=== PATIENT | female | born 1945 | race Caucasian/White ===

== ENCOUNTER 2024-06-21 11:38 | Emergency (ER) | payer OTHER, SELFPAY ==
[2024-06-21 11:49] VITALS: BP 140/78
[2024-06-21 12:15] LABS: % Immature Granulocytes 0.5 % (0-0.5); % Lymphocytes 29.2 % (20.5-51.1); % Monocytes 11.8 % (1.7-9.3); % Neutrophils 53.5 % (42.2-75.2); Absolute Basophils 0.1 10^3/uL (0-0.2); Absolute Eosinophils 0.4 10^3/uL (0-0.7); Absolute Immature Granulocytes 0.1 10^3/uL (0-0.05); Absolute Lymphocytes 2.8 10^3/uL (1.2-3.4); Absolute Monocytes 1.1 10^3/uL (0.1-0.6); Absolute Neutrophils 5.1 10^3/uL (1.4-6.5); Hemoglobin 14.6 g/dL (12.0-16.0); Mean Corp Hgb Conc. 31.7 g/dL (33.0-37.0); Mean Corpuscular Hgb 30.3 pg (27.0-31.0); Mean Corpuscular Volume 95.4 fL (81.0-99.0); Mean Platelet Volume 9.7 fL (7.4-10.4); Nucleated Red Blood Cells % 0 %; Platelet Count 218 10^3/uL (130-400); Red Blood Cell Count 4.82 10^6/uL (4.20-5.40); Red Cell Dist. Width 12.1 % (11.5-14.5); White Blood Cell Count 9.6 10^3/uL (4.8-10.8)
[2024-06-21 12:26] LABS: INR 1.26; PT 16.3 Sec (11.4-14.6)
[2024-06-21 12:31] LABS: ALT (SGPT) 25 U/L (0-35); AST (SGOT) 32 U/L (14-36); Albumin 4.2 g/dl (3.5-5.0); Alkaline Phosphatase 102 U/L (38-126); Blood Urea Nitrogen 20 mg/dl (7-17); Calcium 9.6 mg/dl (8.4-10.2); Carbon Dioxide 25 mmol/L (22-30); Chloride 105 mmol/L (98-107); Glucose 94 mg/dl (70-99); Potassium 4.4 mmol/L (3.5-5.1); Sodium 142 mmol/L (135-145); Total Bilirubin 0.5 mg/dl (0.2-1.3); eGFR > 60.00
[2024-06-21 12:43] LABS: Troponin I < 0.012 ng/ml
[2024-06-21 13:56] VITALS: BMI 32.4
--- NOTE | 2024-06-21 14:10 | ED.GENMED ---
History of Present Illness
General
Chief Complaint: Heart Rate Problem
Source: patient
Exam Limitations: none
Time Seen by Provider: 06/21/24 12:56
Nursing documentation reviewed up to this point in time: agreed with
History of Present Illness
History of Present Illness:
78-year-old female presenting to the emergency department today with concerns of palpitations over the past 4 days. Does of a history of paroxysmal A-fib and ablation 8 years ago otherwise was feeling well up until about a month ago was placed on
diltiazem and Eliquis and seem to go out of A-fib at the time symptoms recurred a few days ago. Denies specific chest pain or any severe symptoms. Tends to feel some increased lightheadedness and fatigue with increased exertion. Denies any chest
pain.
Past History
Past History
ED Past Medical History: Arrthythmia (Atrial fibrillation)
Social History
Tobacco: Former smoker
Personal:
Review of Systems
Review of Systems
Allergies reviewed?: Yes
All Other Systems: ROS reviewed and negative except as documented in HPI and ROS
Phy Exam
Physical Exam
Physical Exam:
GENERAL: Alert , in no apparent distress
EYE: pupils equal and reactive
NECK: Supple, no significant adenopathy.
ENT: o/p clr, mmm.
CARDIAC: Irregularly irregular normal rate
LUNGS: Clear breath sounds bilaterally, no acute respiratory distress, no wheezes/rales/rhonchi
ABDOMEN: Soft, without focal tenderness, no r/g, no cvat
NEUROLOGICAL: Alert and oriented, no focal neuro deficits
SKIN: Warm and dry, skin intact.
MUSCULOSKELETAL: No edema, well perfused.
PSYCH: Normal and appropriate interaction.
Course
Orders/Labs/Results
Orders:
Orders
06/21/24 11:39
Electrocardiogram (*1) Urgent
Reason for Study: Chest Pain
EKG- Treatment ONCE
06/21/24 12:06
Complete Blood Count/With Diff Urgent
Comprehensive Metabolic Panel Urgent
PT/INR [Prothrombin Time] Urgent
Troponin I Urgent
06/21/24 14:09
Diltiazem Extended Release [Cardizem Cd] 180 mg PO NOW STA
Abnormal Lab Results
06/21/24
12:06
MCHC 31.7 L g/dL
(33.0-37.0)
Abs Immat Gran (auto) 0.1 H 10^3/uL
(0-0.05)
Absolute Monos (auto) 1.1 H 10^3/uL
(0.1-0.6)
Monocytes % 11.8 H %
(1.7-9.3)
PT 16.3 H Sec
(11.4-14.6)
BUN 20 H mg/dl
(7-17)
06/21/24 12:06
06/21/24 12:06
Vital Signs
Initial and Last Documented VS:
Initial Vital Signs
Temp Pulse Resp BP Pulse Ox
98.5 F 94 16 140/78 98
06/21/24 11:49 06/21/24 11:49 06/21/24 11:49 06/21/24 11:49 06/21/24 11:49
Last Documented Vital Signs
Temp Pulse Resp BP Pulse Ox
98.5 F 94 19 140/78 97
06/21/24 11:49 06/21/24 13:45 06/21/24 13:45 06/21/24 11:49 06/21/24 13:45
MDM/Problems Addressed
MDM/Problems Addressed:
78-year-old female presenting to the emergency department today with concerns of A-fib over the past few days. Has had this in the past had previous ablation 8 years ago. Here heart rate fluctuating between 70 and 110 normal blood pressure labs
unremarkable troponin negative no signs of ischemia. Patient generally well-appearing. Case discussed with cardiology that would like her to be increased and diltiazem and she can follow-up as an outpatient. The option of cardioversion was
discussed with the patient, she declined cardioversion at this time. Patient is otherwise anticoagulated with Eliquis and stable for outpatient management.
*Critical Care Note
Total Time (30-74mins, 75-104mins- exclusive of procedures): Not Applicable
ED Attending Note
-
Portions of this chart may have been created with voice recognition software.� Occasional wrong word or��sound alike� substitutions may have occurred due to the inherent limitations of voice recognition software.
Discharge Plan
Departure
Patient Disposition: Home (Routine Discharge)
Date of Disposition: 06/21/24
Time of Disposition: 14:20
Patient with high blood pressure during this ER visit?: No
Condition: Good
Covid-19: Not Applicable
Discharge Problem:
Atrial fibrillation
Instructions: Chest Pain CBC Follow Up
Prescriptions:
New
diltiazem HCl 180 mg capsule,extended release 24 hr
180 mg PO BID 14 Days Qty: 28 0RF
No Action
multivitamin [Multi-Day] 1 EACH tablet
1 ea PO DAILY
[id number] [Airborne (lysine HCl)] 1 EACH tablet, effervescent
2,500 mcg PO DAILY
ascorbic acid-vitamin E-biotin [Hair, Skin, Nails with Biotin] 1 EACH tablet,chewable
1 dose PO DAILY
Calcium
1,000 mg PO DAILY
sennosides [senna] 1 TABLET tablet
2 tab PO BID Qty: 0 0RF
acetaminophen 325 MG tablet
650 mg PO Q4HPRN PRN (Reason: for mild pain or fever >100.4F) Qty: 0 0RF
hydrocodone-acetaminophen 1 TABLET tablet
1 - 2 tab PO Q4HPRN PRN (Reason: pain) Qty: 90 0RF
docusate sodium 100 MG capsule
100 mg PO BID Qty: 0 0RF
warfarin [Jantoven] 2.5 MG tablet
2.5 mg PO DAILY Qty: 40 0RF
Rx Instructions:
take 2 tab 08/12 and 08/[address] Holguin
ibuprofen [Advil] 200 MG tablet
600 mg PO Q8HPRN PRN (Reason: pain) Qty: 0 0RF
Referrals:
Radhames Jacome MD [Family Provider] -
Activity Restrictions/Additional Instructions:
You came to the emergency department today with concerns of atrial fibrillation. Please follow closely with cardiology. Please take 180 mg of diltiazem twice daily as well as your Eliquis and follow-up closely with cardiology. Return to the
emergency department any worsening, new or concerning symptoms.
Interventions
Interventions:
*Risk Screen - Suicide Last Done: 06/21/24 11:49
*General Assessment Last Done: 06/21/24 11:49
*Neglect/Abuse Screening Last Done: 06/21/24 11:49
ED- Fall Risk Assessment Last Done: 06/21/24 13:57
*ED COVID-19 Vaccine History Last Done: 06/21/24 11:49
ED- Pulmonary Assessment Last Done: 06/21/24 13:57
Discharge Date and Time
Print Language: NEPALI
[2024-06-21] MEDS: CARDIZEM CD 180 MG PO (14:31)
[2024-06-21 15:05] VITALS: BP 141/80
== END 2024-06-21 15:07 | disposition home or self-care (01) ==
LOC: EMR 11:38
PROVIDERS: Emergency Medicine; EMERGENCY PHYSICIAN Emergency Medicine; FAMILY PHYSICIAN Family Medicine
DX: I48.91 Unspecified atrial fibrillation (principal); Z87.891 Personal history of nicotine dependence; Z79.01 Long term (current) use of anticoagulants; Z79.899 Other long term (current) drug therapy
CPT/HCPCS: 99284; 80053; 84484; 85025; 85610; 93005

== ENCOUNTER 2024-07-14 05:57 | Day surgery (SDC) | payer OTHER, SELFPAY ==
[2024-07-14] VITALS (14 sets, daily range): BP systolic 124–155; BP diastolic 62–82; BMI 34.7
[2024-07-14 08:47] LABS: ACT-LR - POC 322 Seconds (116-155)
[2024-07-14 09:10] LABS: ACT-LR - POC 285 Seconds (116-155)
--- NOTE | 2024-07-14 10:14 | ITS.CL.ABL ---
Software Performance Engineer - Ablation
Ablation
Procedure Report:
ELECTROPHYSIOLOGIC STUDY AND POSSIBLE ABLATION
DATE: 07/14/24
Primary Care Provider: Gladis Woodard NP
Primary Blacksmith Assistant: Dr Jad Mahajan
INDICATION:
Symptomatic Paroxysmal Atrial Fibrillation and Left atrial flutter.
HISTORY: See H and P.
Symptomatic AF, poorly controlled with attempted medical therapy.
She underwent PVI in 2016 and did well for approximately 8 years then developed recurrent atrial fibrillation and atrial tachycardia/atrial flutter which has been difficult to rate control with diltiazem, symptomatic. She has been referred for
consideration for repeat mapping and ablation.
HAS-BLED: 1
Age
CHADSVASc: 4
HTN
Age
F Gender
PRESENTING RHYTHM: SR
HISTORY: See H and P.
Symptomatic AF, poorly controlled with attempted medical therapy.
ANTICOAGULATION: Apixaban
'TIME-OUT': called and confirmed.
SEDATION/ANESTHESIA: provided via the anesthesia department using general anesthesia.
PROCEDURE:
Ultrasound Guidance performed by md was utilized for femoral venous Vascular Access b/l.
A decapolar CS catheter was placed within the CS for mapping and pacing.
The intracardiac ultrasound catheter was positioned in the RA for continuous intracardiac ultrasound imaging.
Heparin bolus and infusion to target ACT at 300 -350 seconds was administered. Transseptal puncture was performed. This entailed advancing a sheath with dilator into the superior vena cava and withdrawing both (monitoring intracardiac ultrasound,
fluoroscopy and tip pressure) with the tip oriented toward the atrial septum. The fossa ovalis was engaged (indicated by sudden displacement of the sheath tip as well as tenting of the fossa seen on intracardiac ultrasound).
The [employer] transseptal system was used. Left atrial catheter position was confirmed by echocardiographic imaging and fluoroscopy followed by RF delivery using the [employer] system resulting in successful LA access with pressure monitoring
demonstrating LA pressure waveforms (LA mean pressure 8 mm Hg). The sheath was advanced over the dilator and positioned in the left atrium.
The Galeana Grid multipolar mapping catheter was initially positioned through the transseptal sheath for high density mapping.
Geometry and voltage mapping was performed using the Galeana multipolar grid catheter. Ensite-X was utilized for three-dimensional electroanatomical mapping.
A 3-D map was created using Ensite-X in Voxel mode. A 3-D reconstructed CT image was compared to the 3-D Navex map to assist in anatomic evaluation, mapping and ablation.
There is electrical isolation of the right superior and right inferior pulmonary vein at the ostia and at the atrial level. There is an area of reconnection at the kiel between the left superior and left inferior pulmonary veins, otherwise
isolated.
Programmed electrical stimulation which included burst atrial pacing as well as atrial decremental extrastimuli failed to induce any sustained arrhythmias.
The [employer]ees PFA catheter and system was used for cardiac ablation. Catheter positioning was guided and confirmed using both I.C.E. and fluoroscopy.
Initial PFA application included isolation at the posterior kiel between the left superior and left inferior pulmonary veins.
Additional ablation lesion set was applied to the posterior wall of the left atrium given that prior EKG from June 21, 2024 suggested left atrial flutter despite inability to induce the tachycardia given that there is EKG evidence of the
tachycardia..
Programmed electrostimulation failed to induce any sustained arrhythmias.
I.C.E. :
Pre-Ablation Post-Ablation
LVEF: 55 % 55 %
WMA: none none
Pericardial effusion: none none
COMPLICATIONS:
none
SUMMARY:
- Mapping and ablation to isolate the PVs
- Additional AF ablation set after PVI.
- 3-D Electroanatomical Mapping
- Intracardiac Ultrasound
Post ablation, I discussed today's findings and results with the patient's .
RECOMMENDATIONS:
- Observe in monitored bed.
- Maintain oral anticoagulation.
- Reduce diltiazem and there can be consideration for discontinuation of diltiazem if blood pressure allows or if an alternative antihypertensive drug is chosen. (She is concerned diltiazem is adding to her fatigue)
- Office visit with Dr Mahajan in 3-4 months.
- Continue cardiovascular care with Dr Mahajan
Copy to:
Gladis Woodard NP
Dr Jad Mahajan
[2024-07-14] MEDS: ANESTHETIC LOZENGE 1 LOZENGE PO (10:23)
--- NOTE | 2024-07-14 14:46 | W.PN.UPDATE ---
Update Note
Progress Note Update
Pt seen post PFA. Right groin site with mild bleed after suture removal, manual compression held and now without bleeding/ht. OOB ambulating to bathroom with steady gait. Post EKG NSR 80s, no acute changes. Resume eliquis tonight at usual time.
Decrease diltiazem to 180mg daily. She is concerned with side effects and will keep a BP log and bring to followup appointment with Dr. Mahajan as scheduled. Home later today if groin site/tele remain stable.
== END 2024-07-14 14:49 | disposition home or self-care (01) ==
LOC: CATH 05:57
PROVIDERS: ATTENDING PHYSICIAN Internal Medicine Cardiovascular Disease; FAMILY PHYSICIAN Family Medicine; OTHER PHYSICIAN Internal Medicine Cardiovascular Disease
DX: I48.0 Paroxysmal atrial fibrillation (principal); I48.92 Unspecified atrial flutter; I47.19 Other supraventricular tachycardia; I10 Essential (primary) hypertension; Z88.1 Allergy status to other antibiotic agents; Z79.01 Long term (current) use of anticoagulants; Z79.899 Other long term (current) drug therapy
CPT/HCPCS: C1732; C1894; C1769; C1892; C1730; 85347; 93005; 93656; 93657; C1733; C1766

== ENCOUNTER → 2024-10-11 14:27 | Outpatient (REF) | payer OTHER, SELFPAY | LOC: WDC 14:27 | PROVIDERS: ATTENDING PHYSICIAN Nurse Practitioner Family | DX: Z12.31 Encounter for screening mammogram for malignant neoplasm of breast (principal) | CPT/HCPCS: 77063; 77067 ==